=== PATIENT | female | born 1960 | race Caucasian/White ===

== ENCOUNTER → 2020-09-02 | Outpatient (CLI) | payer OTHER ==
[~2020-09-02] MED LIST: ATIVAN1 MG PO; CYANOCOBAL1000 MCG/1 INJ; CYCLOBENZAPRINE5 MG PO; GABAPENTIN600 MG PO; HYDROCODON-ACE1 EAC2 PO; IBU600 MG PO; IPRATROPIUM BROMIDE; MUCUS RELIEF400 MG PO; PREVACID30 MG PO; VITAMIN D21250 MCG PO; WIXELA 100-501 EACH INH
== END ==
LOC: KOH-I 09:19
DX: S92.321A Displaced fracture of second metatarsal bone, right foot, initial encounter for closed fracture (principal); S92.334A Nondisplaced fracture of third metatarsal bone, right foot, initial encounter for closed fracture; S92.344A Nondisplaced fracture of fourth metatarsal bone, right foot, initial encounter for closed fracture; X58.XXXA Exposure to other specified factors, initial encounter
CPT/HCPCS: 73700

== ENCOUNTER → 2020-10-07 | Outpatient (CLI) | payer OTHER | LOC: KOH-I 10:42 | DX: S92.901A Unspecified fracture of right foot, initial encounter for closed fracture (principal); M89.8X7 Other specified disorders of bone, ankle and foot; X58.XXXA Exposure to other specified factors, initial encounter | CPT/HCPCS: 73630 ==

== ENCOUNTER → 2020-10-28 | Outpatient (CLI) | payer OTHER | LOC: KOH-I 11:14 | DX: S92.301A Fracture of unspecified metatarsal bone(s), right foot, initial encounter for closed fracture (principal); X58.XXXA Exposure to other specified factors, initial encounter | CPT/HCPCS: 73630 ==

== ENCOUNTER → 2020-11-27 | Outpatient (CLI) | payer OTHER | LOC: KOH-I 10:33 | DX: S92.341K Displaced fracture of fourth metatarsal bone, right foot, subsequent encounter for fracture with nonunion (principal); S92.321K Displaced fracture of second metatarsal bone, right foot, subsequent encounter for fracture with nonunion; S92.331K Displaced fracture of third metatarsal bone, right foot, subsequent encounter for fracture with nonunion; X58.XXXD Exposure to other specified factors, subsequent encounter | CPT/HCPCS: 73630 ==

== ENCOUNTER → 2021-02-03 | Outpatient (CLI) | payer OTHER | LOC: KOH-I 10:52 | DX: S92.901A Unspecified fracture of right foot, initial encounter for closed fracture (principal) | CPT/HCPCS: 73630 ==

== ENCOUNTER → 2021-02-04 | Outpatient (CLI) | payer OTHER | LOC: KOH-I 08:00 | DX: S92.354D Nondisplaced fracture of fifth metatarsal bone, right foot, subsequent encounter for fracture with routine healing (principal) | CPT/HCPCS: 73700 ==

== ENCOUNTER → 2021-02-25 | Outpatient (CLI) | payer OTHER ==
[~2021-02-25] VITALS: Ht 162.6 cm; Wt 65.3 kg
[2021-02-25 12:07] LABS: HEMOGLOBIN 13.4 gm/dl (12.3-15.3); RED BLOOD COUNT 4.23 M/UL (4.00-5.10); WHITE BLOOD COUNT 12.3 K/UL (4.5-11.0)
[2021-02-25 12:28] LABS: BUN/CREATININE RATIO 37 (0-10)
== END ==
LOC: OPSV2 11:21
PROVIDERS: Podiatrist Foot & Ankle Surgery
DX: Z01.812 Encounter for preprocedural laboratory examination (principal); S92.321A Displaced fracture of second metatarsal bone, right foot, initial encounter for closed fracture; S92.331A Displaced fracture of third metatarsal bone, right foot, initial encounter for closed fracture
CPT/HCPCS: 36415; 80048; 85027

== ENCOUNTER 2021-02-27 09:20 | Day surgery (SDC) | payer OTHER ==
[~2021-02-27] VITALS: Ht 157.5 cm; Wt 59.4 kg
[~2021-02-27 09:20] MED LIST changes: -ATIVAN1 MG PO
--- NOTE | 2021-02-27 20:30 | NUR ---
PATIENT STATED SHE WAS LEAVING TO GET HER MEDS FROM THE PHARMACY. STATED SHE WAS AFRAID SHE WOULD NOT HAVE ANY PAIN MEDICATION OVERNIGHT. DISCHARGE PAPERWORK NOT COMPLETE. ASKED IF HER SON OR THE FRIEND WITH HER COULD PICK IT UP. PATIENT STATED HER SON TRIED, BUT BECAUSE THIS WAS THE FIRST PRESCRIPTION SHE WAS HAVING FILLED AT THE [facility] THAT SHE WOULD HAVE TO COME IN WITH A PHOTO ID. PLEADED WITH PATIENT TO STAY A LITTLE LONGER, BUT SHE LEFT WITHOUT SIGNING DC PAPERWORK. SHE STATED SHE WOULD COME COME FOR THE PAPERWORK.
--- NOTE | 2021-02-27 21:30 | NUR ---
PATIENT HAD NOT RETURNED BY 930PM. 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 I CALLED THE PATIENT AT HOME AND SHE STATED SHE WAS NOT ABLE TO OBTAIN ANY OF HER MEDICATIONS. [facility]C[employer]ET REQUIRED PRIOR AUTH AND THE PHARMACY WOULD NOT STAY OPEN FOR HER [address]. I CONSOLED PATIENT AND TOLD HER TO COME TO THE ER IF SHE HAD ANY COMPLICATIONS OR UNBEARABLE PAIN. I EXPLAINED ALL DISCHARGE INSTRUCTIONS TO HER WITH GOOD UNDERSTANDING NOTED.
== END 2021-02-27 21:25 | disposition home or self-care (01) ==
LOC: OR 09:20 → MED SURG 4 19:45 → OR 21:25
DX: S92.324K Nondisplaced fracture of second metatarsal bone, right foot, subsequent encounter for fracture with nonunion (principal); S92.334K Nondisplaced fracture of third metatarsal bone, right foot, subsequent encounter for fracture with nonunion; S93.324A Dislocation of tarsometatarsal joint of right foot, initial encounter; J44.9 Chronic obstructive pulmonary disease, unspecified; X58.XXXA Exposure to other specified factors, initial encounter; F17.210 Nicotine dependence, cigarettes, uncomplicated; K21.9 Gastro-esophageal reflux disease without esophagitis; G43.909 Migraine, unspecified, not intractable, without status migrainosus; Z98.1 Arthrodesis status
CPT/HCPCS: 73620; 73630; 76000; C1713; J0171; J0690; J1100; J1885; J2001; J2250; J2405; J2704; J2795; J3010; J3370; J7120

== ENCOUNTER 2021-03-01 09:42 | Emergency (ER) | payer OTHER ==
[2021-03-01 10:30] LABS: RED BLOOD COUNT 3.4 M/UL (4.00-5.10); WHITE BLOOD COUNT 12.8 K/UL (4.5-11.0)
[2021-03-01 10:38] LABS: HEMOGLOBIN 11.2 gm/dl (12.3-15.3)
[2021-03-01 10:51] LABS: BUN/CREATININE RATIO 38 (0-10)
[2021-03-01] MEDS ORDERED: ATIVAN1 MG PO (12:25)
== END 2021-03-01 13:04 | disposition home or self-care (01) ==
LOC: ER1 09:42
PROVIDERS: Family Medicine
DX: G89.29 Other chronic pain (principal); M79.671 Pain in right foot; J44.9 Chronic obstructive pulmonary disease, unspecified; G47.00 Insomnia, unspecified; F11.20 Opioid dependence, uncomplicated; F17.200 Nicotine dependence, unspecified, uncomplicated; Z98.890 Other specified postprocedural states
CPT/HCPCS: 80048; 83605; 85025; 86140; 96374; 96375; 99283; J1170; J2405

== ENCOUNTER → 2021-03-16 | Outpatient (CLI) | payer OTHER ==
[~2021-03-16] MED LIST changes: +ATIVAN1 MG PO
== END ==
LOC: KOH-I 09:18
DX: S92.321A Displaced fracture of second metatarsal bone, right foot, initial encounter for closed fracture (principal); S92.331A Displaced fracture of third metatarsal bone, right foot, initial encounter for closed fracture
CPT/HCPCS: 73630

== ENCOUNTER → 2021-03-30 | Outpatient (CLI) | payer OTHER | LOC: KOH-I 09:06 | DX: M79.671 Pain in right foot (principal) | CPT/HCPCS: 73630 ==

== ENCOUNTER → 2021-04-13 | Outpatient (CLI) | payer OTHER | LOC: KOH-I 10:07 | DX: S92.321D Displaced fracture of second metatarsal bone, right foot, subsequent encounter for fracture with routine healing (principal); S92.331D Displaced fracture of third metatarsal bone, right foot, subsequent encounter for fracture with routine healing | CPT/HCPCS: 73630 ==

== ENCOUNTER → 2021-05-05 | Outpatient (CLI) | payer OTHER | LOC: KOH-I 09:56 | DX: S92.321D Displaced fracture of second metatarsal bone, right foot, subsequent encounter for fracture with routine healing (principal); S92.331D Displaced fracture of third metatarsal bone, right foot, subsequent encounter for fracture with routine healing | CPT/HCPCS: 73630 ==